=== PATIENT | male | born 1940 | race Caucasian/White ===

== ENCOUNTER 2025-06-12 15:15 | Inpatient (IN) | payer MEDICARE, SELFPAY ==
[2025-06-12] VITALS (17 sets, daily range): BP systolic 102–139; BP diastolic 50–86; PULSE 58–91; RESP 4–19; TEMP 36.8–37.2; O2SAT 89–98; BMI 26.2; BMI 25.1
--- NOTE | 2025-06-12 15:09 | W.ED.GENADLT ---
HPI - General Adult General: Chief complaint: Chest Pain Stated complaint: stemi History of Present Illness: 84-year-old male presents emergency room as a ER to ER transfer for STEMI from [facility]. Patient began having chest pain yesterday patient arrives by air ambulance he is stable at the time he arrives. He has some ST elevation that is 3 and aVF on arrival they are on their EKGs it actually looks like it has improved some. They had given the patient Plavix aspirin and started him on heparin with a 4000 unit bolus and then a drip. Prior to transferring they have discussed with Dr. Mitchell. On arrival here patient denies any chest pain initial EKG shows. Persistent slight ST elevation in 3 and aVF with some development of Q waves. Patient is diabetic does not smoke no known history of coronary artery disease. Associated symptoms: Reports chest pain; Deny dyspnea or rash Related Data Home Medications ?Medication ?Instructions ?Recorded ?Confirmed aspirin 81 mg tablet 81 mg PO DAILY 04/30/25 06/12/25 clopidogrel 75 mg tablet (Plavix) 75 mg PO DAILY 04/30/25 06/12/25 glipizide 10 mg tablet 20 mg PO BID 04/30/25 06/12/25 insulin glargine 100 unit/mL 40 unit SUBCUT QAM 04/30/25 06/12/25 subcutaneous cartridge latanoprost 0.005 % eye drops 1 drp ophthalmic (eye) DAILY 04/30/25 06/12/25 lovastatin 10 mg tablet 10 mg PO DAILY 04/30/25 06/12/25 albuterol sulfate 90 mcg/actuation 2 puff inhalation QID PRN 06/12/25 06/12/25 aerosol inhaler Shortness Of Breath apple cider vinegar 300 mg tablet 300 mg PO DAILY 06/12/25 06/12/25 atorvastatin 80 mg tablet 40 mg PO QPM 06/12/25 06/12/25 cholecalciferol (vitamin D3) 50 50 mcg PO DAILY 06/12/25 06/12/25 mcg (2,000 unit) tablet diclofenac sodium 1 % topical gel 4 g topical QID 06/12/25 06/12/25 dorzolamide 22.3 mg-timolol 6.8 1 drp ophthalmic (eye) BID 06/12/25 06/12/25 mg/mL eye drops empagliflozin 25 mg tablet 25 mg PO DAILY 06/12/25 06/12/25 (Jardiance) fluticasone 100 mcg-salmeterol 50 1 inh inhalation BID 06/12/25 06/12/25 mcg/dose blistr powdr for inhalation gabapentin 100 mg capsule 200 mg PO TID 06/12/25 06/12/25 lidocaine 5 % topical patch 3 patch topical DAILY 06/12/25 06/12/25 metformin 500 mg tablet,extended 1,000 mg PO BID 06/12/25 06/12/25 release 24 hr multivitamin with minerals 1 cap PO DAILY 06/12/25 06/12/25 no.7-folic acid 1 mg capsule omega 3-prh-bvn-fish oil 1,000 mg 1 cap PO TID 06/12/25 06/12/25 (120 mg-180 mg) capsule (Fish Oil) propranolol 20 mg tablet 20 mg PO BID 06/12/25 06/12/25 tamsulosin 0.4 mg capsule 0.4 mg PO QPM 06/12/25 06/12/25 Allergies Allergy/AdvReac Type Severity Reaction Status Date / Time latex Allergy Unknown irritation Verified 04/30/25 15:34 Sulfa (Sulfonamide Allergy Unknown ALGY-Hives Verified 04/30/25 15:34 Antibiotics) iodine Allergy ALGY-Hives Verified 04/30/25 15:34 Review of Systems Const: Denies: fever(s) or chills Card: Reports: chest pain Resp: Denies: dyspnea GI: Denies: abdominal pain : Denies: dysuria, urinary frequency or urinary urgency Musc: Denies: neck pain or back pain Skin/Breast: Denies: rash PFS ED PFSH: Social History Smoking and tobacco/nicotine status: former use of tobacco/nicotine Physical Exam Const: GENERAL APPEARANCE: cooperative ORIENTATION/CONSCIOUSNESS: Yes awake, Yes oriented to person, Yes oriented to place and Yes oriented to time HENMT: COMMON NORMALS: normocephalic, atraumatic and hearing grossly normal bilaterally HEAD & SCALP: normocephalic and atraumatic Resp: COMMON NORMALS: normal respiratory effort, No retractions, No use of accessory muscles and clear to auscultation bilaterally AUSCULTATION: clear to auscultation bilaterally Cardio: COMMON NORMALS: regular rate, regular rhythm and No murmurs present (Cardio) RATE: regular rate RHYTHM: regular rhythm Extremity: COMMON NORMALS: normal to inspection, capillary refill normal, no clubbing, cyanosis or edema, no calf tenderness and no pedal edema Neuro: SENSORIUM/ORIENTATION: Yes oriented to person, Yes oriented to place and Yes oriented to time Skin: COMMON NORMALS: no rashes or lesions noted GENERAL SKIN EXAM: no rashes or lesions noted Course Vital Signs: Vital signs: Vital Signs Temperature 98.9 F 06/12/25 15:15 Pulse Rate 91 06/12/25 15:15 Respiratory Rate 16 06/12/25 15:15 Blood Pressure 123/86 06/12/25 15:15 Pulse Oximetry 95 06/12/25 15:15 Oxygen Delivery Me thod Room Air 06/12/25 15:15 MDM - General Adult Medical Decision Making Dr. Mitchell seen the patient on arrival he reviewed a repeat EKG and recommended going directly to [facility]. He has already received appropriate medication including Plavix aspirin heparin. Patient was prepped for [facility] and transferred directly. Medical Records I reviewed the patient's medical records. Lab Data I reviewed the patient's lab results. No radiology studies performed this visit EKG Data EKG 1: Interpretation: EKG 06/12/2025 1519 sinus rhythm rate of [address] elevation in 3 and aVF with Q waves present. There is some reciprocal ST depression in V45 and 6. Very slight depression in V3. EKGs from [facility] reviewed are scanned into the chart there was ST elevation in those as well. Discharge Plan Discharge Patient Disposition: Admitted As Inpatient Clinical Impression: ST elevation myocardial infarction (STEMI) Condition: Stable Coding Level of Care Code ED [employer] Handler for Bucky Freeman
--- NOTE | 2025-06-12 15:19 | ECG_ITS ---
[employer] Test Date: 2025-06-12 Pat Name: Tomas Anaya Department: Room: Gender: Male Mdm Sr: : 1940 Requested By: Alexey Licona Order Number: [id number] Reading MD: PATRICIA STEVEN Measurements Intervals [place] Rate: 84 P: 64 MN: 184 QRS: -4 QRSD: 122 T: -44 QT: 373 QTc: 443 Interpretive Statements SINUS RHYTHM INFERIOR MYOCARDIAL INFARCTION , PROBABLY RECENT [40+ ms Q WAVE AND/OR ST/T ABNORMALITY IN II/aVF] ACUTE MT No previous ECG available for comparison Electronically Signed On 06-12-2025 20:08:53 CDT by PATRICIA STEVEN [id number] [id number]
--- NOTE | 2025-06-12 15:21 | XACV_ITS ---
Exam Room: 2 Ht: 175 cm Wt: 77 kg BSA: 1.95 m2 Gender: Male : 1940 Any Known Allergies: Latex Exam Priority: Routine Procedure(s): Procedure Description: Diagnostic procedure Procedure Description: Left Heart Catheterization Procedure Description: Left ventriculography Procedure Description: Peripheral Cath Diagnostic Procedure Procedure Description: Abdominal aortic angiography Procedure Description: Miscellaneous Procedure Description: ACT Procedure Description: Coronary Angiography Amanda KELLY; Diagnostic Cath Status: Emergency Diagnostic Findings * Left Main: severe 90% stenosis, TERRY: 3 flow. * Proximal Left Anterior Descending: significant 80% stenosis, TERRY: 3 flow. * Distal Left Anterior Descending: critical 95% stenosis, TERRY: 3 flow. * Proximal Right Coronary Artery to Distal Right Coronary Artery: total occlusion, TERRY: 0 flow. * Proximal Circumflex: severe 90% stenosis, TERRY: 3 flow. * Proximal Circumflex: severe 90% stenosis, TERRY: 3 flow. * Mid Circumflex: obstructive 70% stenosis, TERRY: 3 flow. * 1st Diagonal: severe 90% stenosis, TERRY: 3 flow. * First Obtuse Marginal Branch Segment: severe 90% stenosis, TERRY: 3 flow. * Coronary angiography shows right dominance. Conclusions There is total occlusion coronary artery disease with four vessel disease. The inferior, mid septum, apical septum, anterolateral velasquez are hypokinetic. The apex in the LICEA view is hypokinetic. All other visualized velasquez normal. Moderate left ventricular systolic dysfunction. Ejection fraction of 30%. Recommendations 1-Return to ICU for close monitoring and routine PCI care 2-Continue IV heparin drip as per ACS protocol 3-Hold Plavix for possible CABG 4-Statin with LDL goal of 70 mg/dl, aspirin 81 mg p.o. daily for life long 5-CT surgery consults for CABG 6-Optimal medical management for [place] 7-Continue heparin and nitro drip. Ventriculography Ejection Fraction: 30.0 % LV EDP: 34 mmHg Pressures Phase:Rest AO : 143 / 64 ( 96 ) @ 4:45:00 PM 165 / 69 ( 114 ) @ 5:04:00 PM 166 / 69 ( 115 ) @ 5:04:00 PM 179 / 72 ( 112 ) @ 5:06:00 PM LV : 181 / -15 / 39 @ 5:02:00 PM 177 / -14 / 34 @ 5:04:00 PM 177 / -15 / 28 @ 5:04:00 PM Valves Phase:DefaultPhase AV : 12.0 @ 4:21:45 PM AV Mean Gradient: 12.0 @ 4:21:45 PM Hemodynamic Data Phase:Rest AO : 143.0 / 64.0 ( 96.0 ) @ 4:45:00 PM 165.0 / 69.0 ( 114.0 ) @ 5:04:00 PM 166.0 / 69.0 ( 115.0 ) @ 5:04:00 PM 179.0 / 72.0 ( 112.0 ) @ 5:06:00 PM Clinical Evaluation EBL: 5mL-10mL Procedural Details Pre-Procedure Time Out. Identified patient by full name and date of as verbalized by the patient/guarantor. Does the consent match the physician's order: N/A Emergent. Accurate & Complete Informed Consent: N/A Emergent. Inpatient/Outpatient History & Physical on Chart: N/A Emergent. If H&P is completed, is and addenduem needed: N/A Emergent; If yes, is the addendum complete: N/A Emergent. Visualize and Verify Site with Patient/Guarantor: N/A. Relevant Radiology Images available: N/A. The risks, benefits, and alternatives of sedation and/or procedure were discussed by physician. The patient agrees to continue. Procedure started. [facility] Clinical Fraility Score: 4: Vulnerable. Barrel Stave Inspector Indications: ACS <= 24 hours. Chest Pain Symptom Assessment: Typical Angina Symptoms. Correct patient, site and procedure confirmed by cath team. Current diagnosis: STEMI. PERRLA. 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 Lungs clear x 5 lobes. IV Site on Arrival: 20 gauge in the right anticubital. IV Site on Arrival: 18 gauge in the left anticubital. IV Fluids: 0.9% NaCl at KVO. 0 mL infused prior to biological lab technician. Pre Procedural Pulses: bilateral radial was 2+. Pre Procedural Pulses: bilateral dorsalis pedis was Doppled. Pre Procedural Pulses: bilateral posterior tibial was Doppled. Oxygen started at 2liters/min via nasal canula. right groin was prepped with chloroprep then draped in the usual sterile fashion. right radial was prepped with chloroprep then draped in the usual sterile fashion. Baseline sample Acquired. HR: 71 BPM. Physician notified. Physician arrived. Admit Source: Emergency department. Physician scrubbed in. Immediate Pre-Procedure Time Out. Correct Patient: Yes; Correct Procedure: Yes; Correct Site: Yes; Correct Patient Position: Yes; Correct Supplies: Yes; Dried Flammable Prep: Yes; Blood Products Available: Yes;. Lidocaine 1% infiltrated to the right radial. An attempt to gain access to the right radial artery was unsuccessful. Manual pressure was held as needed to stop the bleeding. Lidocaine 1% infiltrated to the right groin. Arterial access obtained with micropuncture set. A 5 botswanan JL4 catheter in over wire. ACT drawn. Results 146 seconds. Therapeutic limits - pre-heparin administration 90-150 seconds and monitoring heparin during a vascular procedure >250 seconds. Multiple views taken of left coronary artery. Catheter removed over the standard wire. A 5 botswanan JR4 catheter in over wire. View taken of RCA. Catheter removed over the standard wire. A 5 botswanan Angled Pig catheter in over wire. Pt nausea with emesis. EDP Sample taken: LV 181/-16,39; HR: 98 BPM; SpO2: 93%. Hand injection through pigtail to assess EF. EDP Sample taken: LV 177/-15,34; HR: 97 BPM; SpO2: 94%. Pullback taken: LV 177/-16,28; AO 165/69(114); Mean: 12mmHg, Peak to Peak: 12mmHg, SEP: 26sec/min; HR: 105 BPM; SpO2: 93%. Pigtail catheter reositioned to distal aorta. Abdominal aortogram performed in AP @ 10 mL/sec for a total of 30 mL. Catheter removed over the standard wire. A Angio-Seal VIP ([facility]) was successful obtaining hemostatsis at the Right Femoral artery insertion site LOT # [id number] EXP 01-13-2026. Post Procedure: Pulses reassessed and unchanged. PERRLA. 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 No VTE prophylaxis required. Medication's Wasted: Lidocaine 1% = 10 mL. Medication's Wasted: Heparin = 1000 unit. Medication's Wasted: Other = Fentanyl 75mcg, Versed 1 mg. Total IV fluids: 100 mL. Post-op diagnosis: Multi-vessel CAD including Left main. Complications: None. Estimated blood loss: 5mL-10mL. Responsiveness - Normal response to verbal stimuli; alert and oriented, PERRLA. Airway - Unaffected, no intervention required; spontaneous ventilation. Circulation: W/N/L, pulses unchanged. Nausea/Vomiting: Yes. Procedure completed. Patient transferred by bed to ICU. Vital chart was stopped. Access Site Site: Right Femoral artery Sheath Size: 6 Fr Hemostasis Method: Angio-Seal VIP ([facility]) Hemostasis Success: Successful Procedure Medications Start: 3:35 PM Stop: 3:35 PM Medication: Benadryl Amount: 50 mg Route: I.V. Start: 3:35 PM Stop: 3:35 PM Medication: Solu-Medrol (methylprednisolone) Amount: 125 mg Route: I.V. Start: 3:38 PM Stop: 3:38 PM Medication: Versed Amount: 1 mg Route: I.V. Start: 3:41 PM Stop: 3:41 PM Medication: Fentanyl Amount: 25 mcg Route: I.V. Start: 3:57 PM Stop: 3:57 PM Medication: Zofran (ondansetron) Amount: 8 mg Route: I.V. Start: 4:05 PM Stop: 4:05 PM Medication: Lasix (furosemide) Amount: 40 mg Route: I.V. Start: 4:10 PM Stop: 4:10 PM Medication: Nitrogylcerin Amount: 1 Sprays Route: S.L. Start: 4:16 PM Stop: 4:16 PM Medication: Nitrogylcerin Amount: 5 mcg/min Route: I.VFox de guzman I, the attending physician, have reviewed and verified all procedure medications. Yes, all medications given per verbal order Report Signatures Finalized by Jared Patel MD on 06/12/2025 05:09 PM
--- OUTSIDE RECORDS SUMMARY | 2025-06-12 15:21 | XMS_ITS | Clinical Summary ---
Author Organization [facility] [place] Address [address] [place] [address] Phone Care Team Providers Care Drawer Liner Name Role Phone Moni Emery MD Primary Care Provider [phone]- [phone] Allergies Active Allergy Reactions Criticality Noted Date Comments Iodine Rash Low 03/26/2012 Latex Rash Low 09/17/2017 Sulfa (Sulfonamide Antibiotics) Hives High 03/02 Medications aspirin (ECOTRIN EC) 81 mg Tablet, Delayed Release (E.C.) Take 81 mg by mouth daily. Active amLODIPine (NORVASC) 5 mg tabletIndicatio ns:Hypertension , essential Take 1 Tablet (5 mg) by mouth daily. 90 Tablet 3 5 Active insulin glargine (Lantus Solostar U-100 Insulin) 100 unit/mL pen syringe Inject 50 Units by subcutaneous injection daily with breakfast. 15 mL 11 5 Active SITagliptin phosphate (Januvia) 100 mg TabletIndicatio ns:Type 2 diabetes mellitus without complication, with long-term current use of insulin ([facility]) Take 1 Tablet (100 mg) by mouth daily. 90 Tablet 3 5 Active clopidogreL (Plavix) 75 mg TabletIndicatio ns:History of stroke without residual deficits Take 1 Tablet (75 mg) by mouth daily. 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 04/16/2012 CRP recently elevated Diagnostic US showed inflamed hand joints no damage so far Starting MTX and staying on prednisone 07/23/2013 off all DMARDs since around last visit R3=0 Encounters Date Type Department Care Team Description 04/23/[address] [phone] Moni Emery MD Provider Call 04/17/2025 Results Follow-Up [address] [phone] Moni Emery MD HEMOGLOBIN A1C, CBC WITH DIFFERENTIAL, COMPREHENSIVE METABOLIC PANEL, TSH REFLEXIVE 04/16/2025 2:00 PM CDT Office Visit [address] [phone] Moni Emery MD Unintentional weight loss (Primary Dx); Type 2 diabetes mellitus without complication, with long-term current use of insulin ([facility]); Hypertension, essential; Mixed hyperlipidemia; Screening for deficiency anemia; Screening for thyroid disorder 03/18/2025 External Device Data STL ABSTRACTION Provider, Abstract from Last 3 Months Family History Medical History Relation Name Comments Heart Attack Father Relation Name Status Comments Father Mother Social History Tobacco Use Types Packs/Day Years Used Date Smoking Tobacco: Former Cigarettes 1 6 1 975 - 1980 Smokeless Tobacco: Never Tobacco Cessation:Counseling Given: Not Answered Alcohol Use Standard Drinks/Week Comments Not Currently 1 (1 standard drink = 0.6 oz pur e alcohol) Sex and Gender Information Value Date Recorded Sex Assigned at Not on file Legal Sex Male 2:57 PM GLOVE TAGGER Gender Identity Not on file Sexual Orientation Not on file Last Filed Vital Signs Vital Sign Reading Time Taken Comments Blood Pressure 122/72 04/16/2025 2:06 PM CDT Pulse 86 04/16/2025 2:06 PM CDT Temperature 36.2 C (97.2 F) 04/16/2025 2:06 PM CDT Respiratory Rate 18 04/16/2025 2:06 PM CDT Oxygen Saturation 97% 04/16/2025 2:06 PM CDT Inhaled Oxygen Concentration - - Weight 76.6 kg (168 lb 12.8 oz) 04/16/2025 2:06 PM CDT Height 175.3 cm (5' 9 ) 04/16/2025 2:06 PM CDT Body Mass Index 24.93 04/16/2025 2:06 PM CDT Plan of Treatment Upcoming Encounters Date Type Department Care Team (Late st Contact Info) Description 09/29/2025 2:40 PM GLOVE TAGGER Office Visit [facility] [address] [phone] Moni Emery MD [address] [phone] Health Maintenance Due Date Last Done Comments RSV VACCINE (60+ or ) (1 - 1-dose 75+ series) 11/29/2014 DTAP/TDAP/TD VACCINES (2 - Tdap) 10/01/2017 10/01/19 08 DIABETES ANNUAL RETINAL EXAM 02/20/2023 02/20/2022 [place] Preventative Visit/Annual Wellness Visit 10/01/2024 INFLUENZA VACCINE (#1) 2025 , 10/16/2019, 10/08/2018, Additional history exists COVID-19 Vaccine (3 - 2024-2 6 season) 2025 05/10/2021, 04/13/2021 DIABETES: A1C (Auto Order) 07/17/202504/16, 10/16/2024, 05/10/2021 LDL CHOLESTEROL ANNUAL 10/16/2025 10/16/2024 DIABETES HBA1C Q 6 MONTHS 10/17/20252024, 10/16/2024, 05/10/2021 DIABETES ANNUAL FOOT EXAM 04/16/2026 04/16/2025 DIABETES MICROALBUMIN ANNUAL SCREEN 04/16/2026 04/16/2025 PNEUMOCOCCAL VACCINE 50+ YEARS Completed 12/14/2015 , 01/15/2013 ZOSTER VACCINE Completed 04/10/2019, 05/2019, 03/26/2011, Additional history exists KHE eGFR (Auto Order) Completed 04/16/2025 , 10/16/2024, 05/10/2021, Additional history exists [facility] uACR (Auto Order) Completed 04/16/2025 Procedures Procedure Name Priority Date/Time Associated Diagnosis Comments MICROALBUMIN/CREATINI NE RATIO, RANDOM UR Routine 04/16/2025 2:29 PM CDT Type 2 diabetes mellitus without complication, with long-term current use of insulin ([facility]) TSH REFLEXIVE Routine 04/16/2025 2:27 PM CDT Screening for thyroid disorder COMPREHENSIVE METABOLIC PANEL Routine 04/16/2025 2:27 PM CDT Hypertension, essential CBC WITH DIFFERENTIAL Routine 04/16/2025 2:27 PM CDT Screening for deficiency anemia HEMOGLOBIN A1C Routine 04/16/2025 2:27 PM CDT Type 2 diabetes mellitus without complication, with long-term current use of insulin ([facility]) LIPID PANEL Routine 10/16/2024 3:11 PM GLOVE TAGGER Mixed hyperlipidemia from Last 3 Months or Most Recently Relevant to Health Maintenance Results * MICROALBUMIN/CREATININE RATIO, RANDOM UR (04/16/2025 2:29 PM CDT) CREATININE, URINE 121 20 - 320 mg/dL [facility] ALBUMIN, URINE 1.1 See Note: mg/dL [facility] Comment: Reference Range: Reference Range Not established ALB/CREAT RATIO, URINE 9 <30 mg/g creat [facility] Comment: The ADA defines abnormalities in albumin excretion as follows: Albuminuria Category Result (mg/g creatinine) Normal to Mildly increased <30 Moderately increased 30-299 Severely increased > OR = 300 The ADA recommends that at least two of three specimens collected within a 3-6 month period be abnormal before considering a patient to be within a diagnostic category. Test Performed at: [facility] [address] Vernell Collado MD Urine URINE SPECIMEN OBTAINED BY CLEAN CATCH PROCEDURE / Unknown 04/16/2025 2:29 PM CDT 04/16/2025 2:29 PM CDT Moni Emery MD URINE ORDERABLES Final Res ult Performing Organization Address [facility]/ZIP Co de Phone Number [facility] [phone] [facility] [address] * TSH REFLEXIVE (04/16/2025 2:27 PM CDT) TSH 1.45 0.40 - 4.50 mIU/L [facility] Comment: Test Performed at: [facility] [address] Vernell Collado MD Blood 04/16/2025 2:27 PM CDT 04/16/2025 2:28 PM CDT Moni Emery MD CHEMISTRY ORDERABLES Final Result Performing Organization Address [facility]/ZIP Co de Phone Number [facility] [phone] [facility] [address] [place] [phone] * CBC WITH DIFFERENTIAL (04/16/2025 2:27 PM CDT) WBC 8.9 3.8 - 10.8 Thousand/u L [facility] RBC 5.37 4.20 - 5.80 Million/uL [facility] HEMOGLOBIN 15.9 13.2 - 17.1 g/dL [facility] HEMATOCRIT 49.7 38.5 - 50.0 % [facility] MCV 92.6 80.0 - 100.0 fL [facility] MCH 29.6 27.0 - 33.0 pg [facility] MCHC 32.0 32.0 - 36.0 g/dL [facility] Comment: For adults, a slight decrease in the calculated MCHC value (in the range of 30 to 32 g/dL) is most likely not clinically significant; however, it should be interpreted with caution in correlation with other red cell parameters and the patient's clinical condition. RDW 12.2 11.0 - 15.0 % [facility] PLATELETS 319 140 - 400 Thousand/u L [facility] MPV 9.8 7.5 - 12.5 fL [facility] NEUTROPHIL ABSOLUTE 5,215 1,500 - 7,800 cells/uL [facility] LYMPHOCYTE ABSOLUTE 2,821 850 - 3,900 cells/uL [facility] MONOCYTE ABSOLUTE 605 200 - 950 cells/uL [facility] EOSINOPHIL ABSOLUTE 187 15 - 500 cells/uL [facility] BASOPHILS ABSOLUTE 71 0 - 200 cells/uL [facility] NEUTROPHIL 58.6 % [facility] LYMPHOCYTES 31.7 % [facility] MONOCYTE 6.8 % [facility] EOSINOPHILS 2.1 % [facility] BASOPHILS 0.8 % [facility] Comment: Test Performed at: [facility] [id number] [place] [address] Vernell Collado MD Blood 04/16/2025 2:27 PM CDT 04/16/2025 2:28 PM CDT us Moni Emery MD HEMATOLOGY ORDERABLES Vicky l Result [facility] [phone] [facility] [address] [place] [address] * (ABNORMAL) HEMOGLOBIN A1C (04/16/2025 2:27 PM CDT) Pathologist [facility] HEMOGLOBIN A1C 11.7(H) <5.7 % [facility] Comment: For someone without known diabetes, a hemoglobin A1c value of 6.5% or greater indicates that they may have diabetes and this should be confirmed with a follow-up test. For someone with known diabetes, a value <7% indicates that their diabetes is well controlled and a value greater than or equal to 7% indicates suboptimal control. A1c targets should be individualized based on duration of diabetes, age, comorbid conditions, and other considerations. Currently, no consensus exists regarding use of hemoglobin A1c for diagnosis of diabetes for children. ESTIMATED AVERAGE GLUCOSE (MG/DL) 289 mg/dL [facility] ESTIMATED AVERAGE GLUCOSE (MMOL/L) 16.0 mmol/L [facility] Comment: Test Performed at: [facility] [address] [place] [address] Vernell Collado MD Blood 04/16/2025 2:27 PM CDT 04/16/2025 2:28 PM CDT Moni Emery MD CHEMISTRY ORDERABLES Final Result [facility] [phone] [facility] [address] [place] [address] * (ABNORMAL) COMPREHENSIVE METABOLIC PANEL (04/16/2025 2:27 PM CDT) Pathologist [facility] GLUCOSE 270(H) 65 - 99 mg/dL [facility] Comment: Fasting reference interval For someone without known diabetes, a glucose value >125 mg/dL indicates that they may have diabetes and this should be confirmed with a follow-up test. BUN 9 7 - 25 mg/dL [facility] CREATININE 0.87 0.70 - 1.22 mg/dL [facility] GFR 85 > OR = 60 mL/min/1. 73m2 [facility] BUN/CREAT RATIO SEE NOTE: 6 - 22 (calc) [facility] Comment: Not Reported: BUN and Creatinine are within reference range. SODIUM 137 135 - 146 mmol/L [facility] POTASSIUM 4.3 3.5 - 5.3 mmol/L [facility] CHLORIDE 100 98 - 110 mmol/L [facility] CO2 25 20 - 32 mmol/L [facility] CALCIUM 9.7 8.6 - 10.3 mg/dL [facility] TOTAL PROTEIN 6.9 6.1 - 8.1 g/dL [facility] ALBUMIN 4.2 3.6 - 5.1 g/dL [facility] GLOBULIN 2.7 1.9 - 3.7 g/dL (calc) [facility] ALBUMIN/GLOBULIN RATIO 1.6 1.0 - 2.5 (calc) [facility] BILIRUBIN TOTAL 0.8 0.2 - 1.2 mg/dL [facility] ALKALINE PHOSPHATASE 129 35 - 144 U/L [facility] AST 17 10 - 35 U/L [facility] ALT 13 9 - 46 U/L [facility] Comment: Test Performed at: [facility] [address] Vernell Collado MD Blood 04/16/2025 2:27 PM CDT 04/16/2025 2:28 PM CDT Moni Emery MD CHEMISTRY ORDERABLES Final Result [facility] [phone] [facility] [address] [place] [address] * (ABNORMAL) LIPID PANEL (10/16/2024 3:11 PM GLOVE TAGGER) CHOLESTEROL 239(H) <200 mg/dL [facility] HDL 34(L) > OR = 40 mg/dL [facility] TRIGLYCERIDE 174(H) <150 mg/dL [facility] LDL CALCULATED 173(H) mg/dL (calc) [facility] Comment: Reference range: <100 Desirable range <100 mg/dL for primary prevention; <70 mg/dL for patients with CHD or diabetic patients with > or = 2 CHD risk factors. LDL-C is now calculated using the Ibis calculation, which is a validated novel method providing better accuracy than the Friedewald equation in the estimation of LDL-C. Mark YANCEY et al. LORIE. 2013;310(19): 7571-1083 (http://education.[employer]/faq/YDQ629) CHOL/HDL RATIO 7.0(H) <5.0 (calc) [facility] NON-HDL CHOLESTEROL 205(H) <130 mg/dL (calc) [facility] Comment: For patients with diabetes plus 1 major ASCVD risk factor, treating to a non-HDL-C goal of <100 mg/dL (LDL-C of <70 mg/dL) is considered a therapeutic option. Test Performed at: [facility] [address] [place] [address] Vernell Collado MD Blood 10/16/2024 3:11 PM GLOVE TAGGER 10/16/2024 3:11 PM GLOVE TAGGER Moni Emery MD CHEMISTRY ORDERABLES Final Result [facility] [phone] [facility] [address] [facility] [address] from Last 3 Months or Most Recently Relevant to Health Maintenance Insurance [facility] MEDICARE HMO Care Teams Drawer Liner Relationship Specialty Start Date End Date Moni Emery MD [address] [place] [phone] PCP - General Family Practice 09/17/24
--- OUTSIDE RECORDS SUMMARY | 2025-06-12 15:21 | XMS_ITS | Clinical Summary ---
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 04/16/2012 CRP recently elevated Diagnostic US showed inflamed hand joints no damage so far Starting MTX and staying on prednisone 07/23/2013 off all DMARDs since around last visit R3=0 Social History Tobacco Use Types Packs/Day Years Used Date Smoking Tobacco: Never Assessed PHQ-2 Answer Date Recorded Patient Health Questionnaire-2 Score 0 06/19/2023 Sex and Gender Information Value Date Recorded Sex Assigned at Not on file Legal Sex Male 10:25 AM CDT Gender Identity Not on file Sexual Orientation Not on file Last Filed Vital Signs Vital Sign Reading Time Taken Comments Blood Pressure 149/81 06/19/2023 2:41 PM CDT Pulse 65 06/19/2023 2:41 PM CDT Temperature - - Respiratory Rate - - Oxygen Saturation 94% 06/19/2023 2:41 PM CDT Inhaled Oxygen Concentration - - Weight 89.3 kg (196 lb 12.8 oz) 06/19/2023 2:41 PM CDT Height - - Body Mass Index - - Plan of Treatment Health Maintenance Due Date Last Done Comments Lipid Panel 1940 MMR Vaccines (1 of 1 - Stand chaz series) 11/29/1940 DTaP,Tdap,and Td Vaccines (1 - Tdap) 11/29/1946 Varicella Vaccines (1 of 2 - 13+ 2-dose series) 11/29/1952 Depression Screening 11/29/1957 Social Drivers of Health (SDoH) 11/29/1957 Pneumococcal Vaccine: 50+ Ye ars (1 of 1 - PCV) 11/29/1989 Complete Fall Risk Assessment 11/29/2004 Zoster Vaccines (2 of 3) 05/21/2011 03/26/2011 RSV Vaccines (1 - 1-dose 75+ series) 11/29/2014 COVID-19 Vaccine (1 - 2023-2 5 season) 2025 Influenza Vaccine (#1) 2025 HIB Vaccines Aged Out No longer eligi ble based on patient's age to complete this topic HPV Vaccines Aged Out No longer eligi ble based on patient's age to complete this topic Hepatitis A Vaccines Aged Out No long er eligible based on patient's age to complete this topic Hepatitis B Vaccines Aged Out No long er eligible based on patient's age to complete this topic IPV Vaccines Aged Out No longer eligi ble based on patient's age to complete this topic Meningococcal B Vaccine Aged Out No l onger eligible based on patient's age to complete this topic Meningococcal Vaccine Aged Out No renée matt eligible based on patient's age to complete this topic Pneumococcal Vaccine Aged Out No long er eligible based on patient's age to complete this topic Rotavirus Vaccines Aged Out No longer eligible based on patient's age to complete this topic Care Teams Case Maker Relationship Specialty Start Date End Date Moni Emery MD PCP - General Family Medicine 05/22/23
--- OUTSIDE RECORDS SUMMARY | 2025-06-12 15:21 | XMS_ITS | Encounter Summary ---
Author Organization [facility] Address [address] [place] [address] Care Team Providers Care Freight Sorter Name Role Phone Moni Emery MD Primary Care Provider [phone]- [phone] Reason for Visit * Reason Onset Date Comments Lab Results 04/17/2025 Encounter Details Date Type Department Care Team (Latest Contact Info) Description 04/17/2025 Results Follow-Up [facility] Medicine [place] [address] [phone] Moni Emery MD [address] [phone] HEMOGLOBIN A1C, CBC WITH DIFFERENTIAL, COMPREHENSIVE METABOLIC PANEL, TSH REFLEXIVE Social History Tobacco Use Types Packs/Day Years Used Date Smoking Tobacco: Former Cigarettes 1 6 1 975 - 1980 Smokeless Tobacco: Never Alcohol Use Standard Drinks/Week Comments Not Currently 1 (1 standard drink = 0.6 oz pur e alcohol) Sex and Gender Information Value Date Recorded Sex Assigned at Not on file Legal 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 Voiced understanding. Reports he is not taking everyday, Reports he will start now. Patient would not schedule labs at this time. Danyelle CESPEDES * Telephone Encounter - Danyelle Hurley LPN - 04/17/2025 1:14 PM CDT ----- Message from Dr. Moni Emery sent at 04/17/2025 1:11 PM CDT ----- HgA1c is quite high now at 11.7 Is he consistently using his Lantus and Januvia both daily? Needs to cutback on sugar/carbohydrates (potatoes/pasta/bread/rice/etc). Needs repeat in 3 months ----- Message ----- From: Deuce Cote Incoming [facility] Results Sent: 04/17/2025 5:10 AM CDT To: Moni Emery MD * Result Encounter Note - Moni Emery MD - 04/17/2025 1:11 PM CDT HgA1c is quite high now at 11.7 Is he consistently using his Lantus and Januvia both daily? Needs to cutback on sugar/carbohydrates (potatoes/pasta/bread/rice/etc). Needs repeat in 3 months documented in this encounter Plan of Treatment Upcoming Encounters Date Type Department Care Team (Late st Contact Info) Description 09/29/2025 2:40 PM CURTAIN STRETCHER Office Visit [facility] [address] [phone] Moni Emery MD [address] [phone] documented as of this encounter Visit Diagnoses Not on filedocumented in this encounter Care Teams Freight Sorter Relationship Specialty Start Date End Date Moni Emery MD [address] [place] [phone] PCP - General Family Practice 09/17/24 documented as of this encounter
--- OUTSIDE RECORDS SUMMARY | 2025-06-12 15:21 | XMS_ITS | Encounter Summary ---
Author Organization [facility] Address [address] [place] [address] Care Team Providers Care Tablet Coater Name Role Phone Moni Emery MD Primary Care Provider +1- [phone] Reason for Referral * Orthotics/Prosthetics (Routine) - Closed Specialty Diagnoses / Procedures Referred By Contac t Referred To Contact Podiatry Diagnoses Type 2 diabetes mellitus without complication, with long-term current use of insulin ([facility]) Procedures AR OFFICE/OUTPATIENT ESTABLISHED MOD MDM 30 MIN AR OFFICE/OUTPATIENT NEW MODERATE MDM 45 MINUTES Moni Emery MD [address] [place] [phone] Phone: tel: fax: Praneeth Ley DPM [address] [place] [address] Phone: tel: fax: Referral ID Status Reason Start Date Expiration Date Visits Re quested Visits Authorized [id number] Closed 04/24/2025 04/24/2026 1 1 Reason for Visit * Reason Comments Provider Call Encounter Details Date Type Department Care Team ([facility] st Contact Info) Description 04/23/2025 Telephone [facility] Medicine [place] [address] [phone] Moni Emery MD [address] [place] [phone] Provider Call Social History Tobacco Use Types Packs/Day Years Used Date Smoking Tobacco: Former Cigarettes 1 6 1 975 - 1980 Smokeless Tobacco: Never Alcohol Use Standard Drinks/Week Comments Not Currently 1 (1 standard drink = 0.6 oz pur e alcohol) Sex and Gender Information Value Date Recorded Sex Assigned at Not on file Legal Sex Male 2:57 PM KNITTER HAND Gender Identity Not on file Sexual Orientation Not on file documented as of this encounter Miscellaneous Notes * Telephone Encounter - Leila Boyce - 04/24/2025 12:59 PM CDT Faxed podiatry referral and last ov notes to Dr. Ley office at [phone] per Amanda. * Telephone Encounter - Amanda Collins LPN - 04/24/2025 9:36 AM CDT 04/24/2025 9:36 AM Returned call and spoke with patient. Discussed where he might want to go and if [place] was alright . Patient states that he could go to [place]. Amanda CESPEDES * Telephone Encounter - Amanda Collins LPN - 04/23/2025 12:31 PM CDT 04/23/2025 12:31 PM Returned call. No answer. Left voice mail/message to return our call. If patient/caregiver calls back, contact center please inform caller to expect a return call from the clinic. Amanda CESPEDES * Telephone Encounter - Karla Santamaria - 04/23/2025 12:20 PM CDT Copied from [facility] #[id number]. Topic: [id number] Call >> Apr 23, 2025 12:18 PM Karla Murry wrote: Caller is requesting to speak with Clinical Care Team. [facility] Callback Number: [phone] Is the caller a Physician, Nurse Practitioner or Physician Client Service Executive? No Call Notes: Received referral for the patient but not in network with insurance. Is this addressing an immediate patient care need? No documented in this encounter Plan of Treatment Upcoming Encounters Date Type Department Care Team (Late st Contact Info) Description 09/29/2025 2:40 PM KNITTER HAND Office Visit [address] [phone] Moni Emery MD [address] [place] [phone] Scheduled Referrals Name Type Priority Associated Diagnoses Orde r Schedule AMB REFERRAL TO PODIATRY Outpatient Referral Routine Type 2 diabetes mellitus without complication, with long-term current use of insulin (CMS/HCC) Ordered: 04/24/2025 documented as of this encounter Visit Diagnoses Diagnosis Type 2 diabetes mellitus without complication, with long-term current use of insulin (CMS/HCC)- Primary documented in this encounter Care Teams Tablet Coater Relationship Specialty Start Date End Date Moni Emery MD [address] [phone] PCP - General Family Practice 09/17/24 documented as of this encounter
--- NOTE | 2025-06-12 16:36 | PM.HP ---
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 He was noted to have dynamic EKG changes with inferolateral ST elevation with chest pain. After nitroglycerin EKGs improved, STEMI pager was alerted and patient was transferred to us by air ambulance. He was taken immediately to the Substation Operator [employer], he was noted to have multivessel coronary artery disease including distal left main proximal and distal high-grade LAD lesion, chronically occluded RCA and ostial high-grade left circumflex artery. Given the nature of the disease and bifurcating left main high-grade stenosis patient will be best served with coronary artery bypass surgery since he remains stable and chest pain-free. Whether he is a good candidate for coronary artery bypass surgery will be determined after consultation with CT surgeon. Patient was later transferred to ICU on heparin and nitroglycerin drip. Review of Systems Const: Denies: fever(s) or chills Card: Reports: chest pain Resp: Denies: dyspnea GI: Denies: abdominal pain : Denies: dysuria, urinary frequency or urinary urgency Musc: Denies: neck pain or back pain Skin/Breast: Denies: rash Medications/Allergies Home Medications ?Medication ?Instructions ?Recorded ?Confirmed ?Last Taken ?Type aspirin 81 mg tablet 81 mg PO DAILY 04/30/25 06/12/25 Unknown History clopidogrel 75 mg tablet (Plavix) 75 mg PO DAILY 04/30/25 06/12/25 Unknown History glipizide 10 mg tablet 20 mg PO BID 04/30/25 06/12/25 Unknown History insulin glargine 100 unit/mL 40 unit SUBCUT QAM 04/30/25 06/12/25 Unknown History subcutaneous cartridge latanoprost 0.005 % eye drops 1 drp ophthalmic (eye) DAILY 04/30/25 06/12/25 Unknown History lovastatin 10 mg tablet 10 mg PO DAILY 04/30/25 06/12/25 Unknown History albuterol sulfate 90 mcg/actuation 2 puff inhalation QID PRN 06/12/25 06/12/25 Unknown History aerosol inhaler Shortness Of Breath apple cider vinegar 300 mg tablet 300 mg PO DAILY 06/12/25 06/12/25 Unknown History atorvastatin 80 mg tablet 40 mg PO QPM 06/12/25 06/12/25 Unknown History cholecalciferol (vitamin D3) 50 50 mcg PO DAILY 06/12/25 06/12/25 Unknown History mcg (2,000 unit) tablet diclofenac sodium 1 % topical gel 4 g topical QID 06/12/25 06/12/25 Unknown History dorzolamide 22.3 mg-timolol 6.8 1 drp ophthalmic (eye) BID 06/12/25 06/12/25 Unknown History mg/mL eye drops empagliflozin 25 mg tablet 25 mg PO DAILY 06/12/25 06/12/25 Unknown History (Jardiance) fluticasone 100 mcg-salmeterol 50 1 inh inhalation BID 06/12/25 06/12/25 Unknown History mcg/dose blistr powdr for inhalation gabapentin 100 mg capsule 200 mg PO TID 06/12/25 06/12/25 Unknown History lidocaine 5 % topical patch 3 patch topical DAILY 06/12/25 06/12/25 Unknown History metformin 500 mg tablet,extended 1,000 mg PO BID 06/12/25 06/12/25 Unknown History release 24 hr multivitamin with minerals 1 cap PO DAILY 06/12/25 06/12/25 Unknown History no.7-folic acid 1 mg capsule omega 6-uwf-fef-fish oil 1,000 mg 1 cap PO TID 06/12/25 06/12/25 Unknown History (120 mg-180 mg) capsule (Fish Oil) propranolol 20 mg tablet 20 mg PO BID 06/12/25 06/12/25 Unknown History tamsulosin 0.4 mg capsule 0.4 mg PO QPM 06/12/25 06/12/25 Unknown History Allergies Allergy/AdvReac Type Severity Reaction Status Date / Time latex Allergy Unknown irritation Verified 04/30/25 15:34 Sulfa (Sulfonamide Allergy Unknown ALGY-Hives Verified 04/30/25 15:34 Antibiotics) iodine Allergy ALGY-Hives Verified 04/30/25 15:34 PFSH Acute PFSH: Medical History (Updated 06/12/25 @ 19:44 by Jared Patel MD) Hypertension Hyperlipidemia Prostate cancer Social History (Updated 06/12/25 @ 18:28 by Daniel Haji MD) Smoking and tobacco/nicotine status: light tobacco/nicotine user pipe Pipes smoked per week: 7 Years smoked pipe: 5 Pipe Details: Quit 35 years ago Quit status (tobacco/nicotine): has quit using Alcohol intake: never Substance/Drug Use: never Additional social history: Retired real [employer] and [email or web address]. He wants full code as discussed 06/12/2025 with Daniel Haji MD Vitals/I&O/Wt Last Vital Signs Temp 98.9 F 06/12/25 15:15 Pulse 91 06/12/25 15:15 Resp 16 06/12/25 15:15 BP 123/86 06/12/25 15:15 Pulse Ox 95 06/12/25 15:15 O2 Del Method Room Air 06/12/25 15:15 Weight last 48 hrs Weight 178 lb Physical Exam Const: OTHER: GENERAL: Patient is alert, awake and oriented x3. HEART: Regular S1 and S2. No murmur, rub or gallop. LUNGS: Clear to auscultate bilaterally. CENTRAL NERVOUS SYSTEM: Grossly nonfocal. EXTREMITIES: Lower extremities with out edema bilaterally. Data 06/12/25 15:52 06/12/25 15:52 A&P Assessment and plan 1. ST elevation myocardial infarction (STEMI): 2. Hypertension: 3. Prostate cancer: 4. Lung calcification: 5. Hyperlipidemia: 6. LV dysfunction: Plan: Patient is admitted to the ICU Continue IV heparin and IV nitroglycerin Continue aspirin statin add beta-sanjeev Discontinue Plavix as he has been loaded with 600 mg of Plavix in the emergency room for possible CT surgery Echocardiogram assess LV function By LV gram patient left ventricular function was around 40% and no aortic valve gradient was noted I have discussion with the patient and his son who is going to come tomorrow for meeting, patient at this point is not sure regarding CT surgery versus PCI or medical management. He is full code. He would like to discuss it again when his mind is more clear tomorrow. Patient has been given IV Lasix for LV dysfunction in the Substation Operator [employer]. Will continue to monitor Lung nodule noted may need further assessment through CT scan to rule out any malignant metastasis Consult has been placed for medicine colleagues to help us in sorting out underlying medical problems. Further plan be advised as per progress of the patient PDMP PDMP Reviewed: Not Reviewed Attestations Medical Necessity Statement*: Patient require continuation hospitalization for above defined care. Coding Level of Care Code Acute Code for Chg Fwd Diagnoses ST elevation myocardial infarction (STEMI) I21.3 Hypertension I10 Prostate cancer C61 Lung calcification J98.4 Hyperlipidemia E78.5 LV dysfunction I51.9
--- NOTE | 2025-06-12 17:10 | ECG_ITS ---
[employer] Test Date: 2025-06-12 Pat Name: Tomas Anaya Department: Room: ICU09 Gender: Male Youth Care Specialist: : 1940 Requested By: Alexey Licona Order Number: [id number] Reading MD: PATRICIA STEVEN Measurements Intervals Rousseau Rate: 78 P: 64 CT: 210 QRS: -15 QRSD: 116 T: -55 QT: 392 QTc: 448 Interpretive Statements SINUS RHYTHM WITH FIRST DEGREE AV BLOCK INFERIOR MYOCARDIAL INFARCTION , PROBABLY RECENT [40+ ms Q WAVE AND/OR ST/T ABNORMALITY IN II/aVF] ACUTE [place] Compared to ECG 06/12/2025 15:19:13 First degree AV block now present Myocardial infarct finding still present Electronically Signed On 06-12-2025 20:14:58 CDT by PATRICIA STEVEN [email or web address]
--- NOTE | 2025-06-12 17:17 | PC.NURSE ---
I received a call from Lab stating that they had patient's pre-cath blood in the lab, however had not received an order. I obtained verbal orders from Dr. Pacheco for all pre-cath labs and EKG as well as f/u Troponin and EKGs. Timed to match protocol of baseline, 2 hours, and 6 hours. Verbal order read by per policy. Nothing further to add at this time. [facility] contacted Lab after orders were placed to inform them that orders were entered.
[2025-06-12 17:25] LABS: Hematocrit 38.9 % (37-53); Hemoglobin 12.80 g/dL (11.27-16.99); Mean Corpuscular HGB Conc 32.9 g/dL (30-55); Mean Corpuscular Hemoglobin 28.4 pg (27-33); Mean Corpuscular Volume 86.4 fl (82-101); Nucleated Red Blood Cells % 0 %; Platelet Count 330 10^3/cmm (157-399); Red Blood Count 4.50 10^6/uL (3.85-5.65); White Blood Count 11.71 10^3/uL (3.29-11.43)
[2025-06-12] MEDS: nitroglycerin drip 50 MG/250 ML PREMIX IV (17:26)
--- NOTE | 2025-06-12 17:28 | PC.NURSE ---
Dr. Patel at bedside to round on patient and provided verbal order to initiate Heparin weight-based protocol. Order read back and placed per STEMI protocol. I spoke with Alesha Bowman RN, patient's primary nursing and informed her of the addition of medication. She verbalizes understanding.
[2025-06-12 17:32] LABS: INR 1.13 (0.8-1.2); Prothrombin Time 15.30 SECONDS (12.1-14.9)
[2025-06-12 17:41] LABS: Partial Thromboplastin Time 88.2 SECONDS (23.9-36.7)
[2025-06-12 17:44] LABS: Troponin(5th) Baseline 168 ng/L (0-15)
--- NOTE | 2025-06-12 18:09 | PM.CONSULT ---
Providers/Reason For Consult Consulting Physician/Specialty*: Daniel Haji MD Hospitalist Reason for Consult*: Diabetes, abnormal chest x-ray and history of prostate cancer Requesting Physician: Jared Patel Attending Physician: Jared Patel MD Primary Care Provider: Moni Emery MD History of Present Illness History of Present Illness Tomas Anaya is a 84 year old male recently moved from [facility] to [place]. Patient has no history of coronary artery disease or stroke. He does have hyperlipidemia for 5 years diabetes for 5 years with a hemoglobin A1c of 11.3 and does not check his blood sugars. He also states he does not follow a particular diet but does try to avoid sweets. Patient states he does not check his blood sugars because he misplaced his meter. He got 1 about a year ago used 6 times then stopped. His last eye screen was 05/31/2025 for his 's 79th birthday. Patient denies tobacco use but did smoke cigar 5 years only stopping 35 years ago. He does not drink alcohol or use drugs he retired from [employer] as his career. Patient presented to [facility] in [facility] with epigastric abdominal pain radiating to both arms and left neck beginning 20 minutes prior to arrival he had been having nightly pain for about a week Patient has had chest pain for 4 days mostly in the evening he went to hospital in [facility] where EKG showed inferior STEMI with 2 box elevation in lead three 1 box in lead II and 1-1/2 in lead aVF. EKG here similar. He underwent angiogram which showed multivessel disease. This was performed via right femoral artery Diagnostic Findings * Left Main: severe 90% stenosis, TERRY: 3 flow. * Proximal Left Anterior Descending: significant 80% stenosis, TERRY: 3 flow. * Distal Left Anterior Descending: critical 95% stenosis, TERRY: 3 flow. * Proximal Right Coronary Artery to Distal Right Coronary Artery: total occlusion, TERRY: 0 flow. * Proximal Circumflex: severe 90% stenosis, TERRY: 3 flow. * Proximal Circumflex: severe 90% stenosis, TERRY: 3 flow. * Mid Circumflex: obstructive 70% stenosis, TERRY: 3 flow. * 1st Diagonal: severe 90% stenosis, TERRY: 3 flow. * First Obtuse Marginal Branch Segment: severe 90% stenosis, TERRY: 3 flow. * Coronary angiography shows right dominance. Conclusions There is total occlusion coronary artery disease with four vessel disease. The inferior, mid septum, apical septum, anterolateral velasquez are hypokinetic. The apex in the LICEA view is hypokinetic. All other visualized velasquez normal. Moderate left ventricular systolic dysfunction. Ejection fraction of 30%. Recommendations 1-Return to ICU for close monitoring and routine PCI care 2-Continue IV heparin drip as per ACS protocol 3-Hold Plavix for possible CABG 4-Statin with LDL goal of 70 mg/dl, aspirin 81 mg p.o. daily for life long 5-CT surgery consults for CABG 6-Optimal medical management for OK 7-Continue heparin and nitro drip. Dr. Patel noted some masses seen on the cath fluoroscopy and patient states he had chest x-ray done which I reviewed the report from [facility] mediastinal and left hilar calcified lymph nodes are seen. Aortic calcified plaque is noted. There were no reports of consolidation pleural effusion or pneumothorax The patient has a history of prostate cancer and had prostatectomy Review of Systems Narrative: General No fevers chills weight gain weight loss Cardiovascular no chest pain on exertion prior to this week Respiratory no shortness of breath cough wheezing GI no nausea vomiting diarrhea constipation melena hematochezia no dysuria hematuria Neuro no history of seizures or strokes malignancy positive for skin cancers and prostate cancer Medications/Allergies Home Medications ?Medication ?Instructions ?Recorded ?Confirmed ?Last Taken ?Type aspirin 81 mg tablet 81 mg PO DAILY 04/30/25 06/12/25 Unknown History clopidogrel 75 mg tablet (Plavix) 75 mg PO DAILY 04/30/25 06/12/25 Unknown History glipizide 10 mg tablet 20 mg PO BID 04/30/25 06/12/25 Unknown History insulin glargine 100 unit/mL 40 unit SUBCUT QAM 04/30/25 06/12/25 Unknown History subcutaneous cartridge latanoprost 0.005 % eye drops 1 drp ophthalmic (eye) DAILY 04/30/25 06/12/25 Unknown History lovastatin 10 mg tablet 10 mg PO DAILY 04/30/25 06/12/25 Unknown History albuterol sulfate 90 mcg/actuation 2 puff inhalation QID PRN 06/12/25 06/12/25 Unknown History aerosol inhaler Shortness Of Breath apple cider vinegar 300 mg tablet 300 mg PO DAILY 06/12/25 06/12/25 Unknown History atorvastatin 80 mg tablet 40 mg PO QPM 06/12/25 06/12/25 Unknown History cholecalciferol (vitamin D3) 50 50 mcg PO DAILY 06/12/25 06/12/25 Unknown History mcg (2,000 unit) tablet diclofenac sodium 1 % topical gel 4 g topical QID 06/12/25 06/12/25 Unknown History dorzolamide 22.3 mg-timolol 6.8 1 drp ophthalmic (eye) BID 06/12/25 06/12/25 Unknown History mg/mL eye drops empagliflozin 25 mg tablet 25 mg PO DAILY 06/12/25 06/12/25 Unknown History (Jardiance) fluticasone 100 mcg-salmeterol 50 1 inh inhalation BID 06/12/25 06/12/25 Unknown History mcg/dose blistr powdr for inhalation gabapentin 100 mg capsule 200 mg PO TID 06/12/25 06/12/25 Unknown History lidocaine 5 % topical patch 3 patch topical DAILY 06/12/25 06/12/25 Unknown History metformin 500 mg tablet,extended 1,000 mg PO BID 06/12/25 06/12/25 Unknown History release 24 hr multivitamin with minerals 1 cap PO DAILY 06/12/25 06/12/25 Unknown History no.7-folic acid 1 mg capsule omega 2-wmo-ipa-fish oil 1,000 mg 1 cap PO TID 06/12/25 06/12/25 Unknown History (120 mg-180 mg) capsule (Fish Oil) propranolol 20 mg tablet 20 mg PO BID 06/12/25 06/12/25 Unknown History tamsulosin 0.4 mg capsule 0.4 mg PO QPM 06/12/25 06/12/25 Unknown History Allergies Allergy/AdvReac Type Severity Reaction Status Date / Time latex Allergy Unknown irritation Verified 04/30/25 15:34 Sulfa (Sulfonamide Allergy Unknown ALGY-Hives Verified 04/30/25 15:34 Antibiotics) iodine Allergy ALGY-Hives Verified 04/30/25 15:34 Current Medications Generic Name Dose Route Start Last Admin Trade Name Freq PRN Reason Stop Dose Admin Nitroglycerin/Dextrose 50 mg in 250 mls @ 0 mls/hr 06/12/25 16:30 06/12/25 17:26 Nitroglycerin Drip IV 5 mcg/min .Q0M PRANAY 1.5 mls/hr Protocol Administration Per Protocol PFSH Acute PFSH: Medical History (Updated 06/12/25 @ 18:31 by Daniel Haji MD) Hypertension Hyperlipidemia Prostate cancer Social History (Updated 06/12/25 @ 18:28 by Daniel Haji MD) Smoking and tobacco/nicotine status: light tobacco/nicotine user pipe Pipes smoked per week: 7 Years smoked pipe: 5 Pipe Details: Quit 35 years ago Quit status (tobacco/nicotine): has quit using Alcohol intake: never Substance/Drug Use: never Additional social history: Retired real [email or web address] and [employer]. He wants full code as discussed 06/12/2025 with Daniel Haji MD Vitals/I&O/Wt Last Vital Signs Temp 98.9 F 06/12/25 15:15 Pulse 85 06/12/25 17:16 Resp 17 06/12/25 17:00 BP 126/63 06/12/25 17:00 Pulse Ox 92 06/12/25 17:04 O2 Del Method Room Air 06/12/25 17:04 Weight last 48 hrs Weight 77.111 kg Weight 80.739 kg Physical Exam Narrative: General well-developed well-nourished male in no acute cardiopulmonary stress he is lethargic awakens answer questions but voice progressively diminutive and mildly drowsy. He tells me that he is tired this afternoon and sleeps in the afternoons most afternoons. He states that he has been sleeping fine at home denies that he feels drugged CV regular rate and rhythm Lungs clear to auscultation bilaterally with good air movement Abdomen positive bowel tones soft nontender Calves no tenderness cords pretibial edema Radial pulses 2/4 Dorsal pedal pulses 2+/4 Neck no JVD Data 06/12/25 15:52 06/12/25 15:52 A&P Assessment and plan 1. ST elevation myocardial infarction (STEMI): Patient has multivessel coronary artery disease by selective coronary angiogram done today he has not had intervention. Dr. Patel is speaking with cardiothoracic surgery regarding possibility of three-vessel bypass. Alternatively high risk intervention could be attempted. Patient's health is generally pretty good but he has uncontrolled diabetes, history of hypertension and hyperlipidemia. Troponin 168 at 1552 PTT was 88.2 at 1552 resume heparin no bolus 2. Diabetes mellitus with diabetic neuropathy: Start sliding scale insulin and Lantus. Hold metformin due to recent dye. 2000-calorie ADA diet 3. Lung calcification: Will follow-up renal function in the morning. Will give some IV fluids consider CT scan with contrast to follow-up lung nodules 4. Hyperlipidemia: Continue with atorvastatin 80 mg nightly 5. Hypertension: I am going to start metoprolol 25 mg twice a day in place of the he has amlodipine due to known coronary artery disease PDMP PDMP Reviewed: Not Reviewed Coding Level of Care Code [address] elevation myocardial infarction (STEMI) I21.3 Diabetes mellitus with diabetic neuropathy E11.40 Lung calcification J98.4 Hyperlipidemia E78.5 Hypertension I10 Time Spent (min) 70
[2025-06-12] MEDS: heparin drip 25,000 UNIT/500 ML PREMIX 22 UNIT IV (18:10)
[2025-06-12 18:37] LABS: Alanine Aminotransferase 15 U/L (0-41); Albumin Level 3.8 g/dL (3.5-5.2); Alkaline Phosphatase 140 U/L (40-130); Anion Gap 21.7 (5-19); Aspartate Amino Transferase 20 U/L (0-40); Blood Urea Nitrogen 15 mg/dL (8-23); Calcium 9.2 mg/dL (8.5-10.5); Carbon Dioxide 19 mmol/L (22-29); Chloride 98 mmol/L (98-107); Creatinine Clr Calc Pharmacy 69.9573; Globulin 2.9 g/dL (1.3-4.6); Glucose 257 mg/dL (65-115); Lipase 21 U/L (13-60); NT Pro B Type Natriuretic Pept 1299 pg/mL (0-450); Osmolality Calculated 288 mOsm/kg (285-295); Potassium 4.7 mmol/L (3.5-5.1); Sodium 134 mmol/L (136-145); Total Protein 6.7 g/dL (6.6-8.7)
[2025-06-12 18:54] LABS: Troponin 5 2HR 185.2 ng/L (0-15); Troponin 5 2HR Delta 17.2 ABS# (0-10)
--- NOTE | 2025-06-12 20:52 | ECG_ITS ---
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 Measurements Intervals [place] Rate: 64 P: 66 ME: 200 QRS: 2 QRSD: 121 T: -30 QT: 443 QTc: 460 Interpretive Statements SINUS RHYTHM INFERIOR MYOCARDIAL INFARCTION , OF INDETERMINATE AGE [30 ms Q WAVE IN II/aVF] ANTEROLATERAL ST DEPRESSION, POSSIBLY ISCHEMIA Compared to ECG 06/12/2025 17:21:38 First degree AV block no longer present Myocardial infarct finding still present Electronically Signed On 06-13-2025 20:39:25 CDT by Jus Ware M.D. [email or web address]
[2025-06-12 21:57] LABS: Troponin 5 6HR Delta 9.4 ng/L (0-12)
[2025-06-12 21:59] LABS: Troponin 5 6HR 177.4 ng/L (0-15)
[2025-06-13] VITALS (11 sets, daily range): BP systolic 96–124; BP diastolic 51–83; PULSE 55–69; RESP 14–17; TEMP 37.1; O2SAT 95–99
[2025-06-13 01:37] LABS: Partial Thromboplastin Time 83.2 SECONDS (23.9-36.7)
[2025-06-13 04:25] LABS: Hematocrit 38.6 % (37-53); Hemoglobin 12.80 g/dL (11.27-16.99); Mean Corpuscular HGB Conc 33.2 g/dL (30-55); Mean Corpuscular Hemoglobin 28.6 pg (27-33); Mean Corpuscular Volume 86.2 fl (82-101); Nucleated Red Blood Cells % 0 %; Platelet Count 287 10^3/cmm (157-399); Red Blood Count 4.48 10^6/uL (3.85-5.65); White Blood Count 8.55 10^3/uL (3.29-11.43)
[2025-06-13 04:46] LABS: Anion Gap 19.0 (5-19); Blood Urea Nitrogen 19 mg/dL (8-23); Calcium 9.0 mg/dL (8.5-10.5); Carbon Dioxide 21 mmol/L (22-29); Chloride 97 mmol/L (98-107); Creatinine Clr Calc Pharmacy 55.9659; Glucose 293 mg/dL (65-115); Osmolality Calculated 289 mOsm/kg (285-295); Potassium 4.0 mmol/L (3.5-5.1); Sodium 133 mmol/L (136-145)
[2025-06-13] MEDS: insulin glargine 100 units/1 mL 40 UNIT SUBCUT (06:31)
[2025-06-13] MEDS: dorzolamide/timolol Op Soln 10 mL Btl 1 DROP EYE-BOTH (08:17)
[2025-06-13 09:33] LABS: Partial Thromboplastin Time 97.1 SECONDS (23.9-36.7)
--- NOTE | 2025-06-13 10:57 | XRR_ITS ---
PROCEDURE INFORMATION: Exam: XR Chest Exam date and time: 06/13/2025 1:11 PM Age: 84 years old Clinical indication: Shortness of breath; Additional info: SOB TECHNIQUE: Imaging protocol: Radiologic exam of the chest. Views: 1 view. COMPARISON: DX XR chest 1V portable [id number] 06/12/2025 1:40 PM FINDINGS: Lungs: Unremarkable. No consolidation. Pleural spaces: No pneumothorax. Heart/Mediastinum: Unremarkable. No cardiomegaly. Bones/joints: Unremarkable. XR/XR chest 1V portable [id number] IMPRESSION: No acute findings.
--- NOTE | 2025-06-13 12:37 | USCV_ITS ---
CarloTomas sorensen Age: 84 Gender: M : 1940 Exam Date: 06/13/2025 14:00 Ordering Phys: Jared Patel MD ([email or web address]) Technologist: Lazaro Dotson Exam Location: [facility] [place] Indication: POST OK BP: 106 / 52 HR: 58 Rhythm: Sinus Technical Quality: Adequate MEASUREMENTS (Male / Female) Normal Values 2D ECHO LV Diastolic Diameter PLAX 5.0 cm 4.2 - 5.9 / 3.9 - 5.3 cm IVS Diastolic Thickness 1.1 cm 0.6 - 1.0 / 0.6 - 0.9 cm IVS Systolic Thickness 1.2 cm LVPW Diastolic Thickness 0.9 cm 0.6 - 1.0 / 0.6 - 0.9 cm LVPW Systolic Thickness 1.8 cm LVOT Diameter 2.0 cm LV Ejection Fraction 2D Teich 55.5 % LV Ejection Fraction MOD 4C 66.1 % LV Ejection Fraction MOD 2C 53.5 % LV Ejection Fraction 2C AL 55.2 % LA Diameter 3.0 cm RA Systolic Volume 4C AL 72.2 ml RA Systolic Volume 4C MOD 68.6 ml LA Sys Volume AL 50.3 cm cubed LA Sys Volume Index AL 26.5 cm cubed/m squared Aorta at Sinotubular Diameter 2.0 cm IVC Diameter 1.8 cm M-MODE LA Ao Ratio MM 1.3 AV Cusp Separation MM 1.8 cm DOPPLER AV Peak Velocity 121.0 cm/s LVOT Peak Velocity 103.0 cm/s AV Area Cont Eq vti 3.1 cm squared AV Area Cont Eq pk 2.8 cm squared MV Peak Velocity 110.0 cm/s MV Area PHT 3.8 cm squared Mitral E to A Ratio 0.7 TV Peak Velocity 322.8 cm/s TR Peak Velocity 392.0 cm/s TR Peak Gradient 61.5 mmHg TR Mean Velocity 351.0 cm/s TR Mean Gradient 50.3 mmHg TR Velocity Time Integral 118.2 cm PV Peak Velocity 84.7 cm/s RV Ejection Time 0.3 s FINDINGS Left Ventricle Normal left ventricular cavity size. Normal left ventricular wall thickness. Mildly decreased left ventricular systolic function. Left ventricular ejection fraction is estimated at 50 %. There appeared to be inferior wall and basal to mid anterior wall hypokinesis. Right Ventricle The right ventricle is normal in size and function. Right Atrium The right atrium is normal in size. Left Atrium The left atrium is normal in size. Mitral Valve Structurally normal mitral valve without significant stenosis or prolapse. There is mild mitral regurgitation. Aortic Valve Structurally normal aortic valve with mild sclerosis or stenosis. There is n trace aortic regurgitation. Tricuspid Valve Mild tricuspid valve regurgitation. Pulmonic Valve Structurally normal pulmonic valve without significant stenosis. There is no pulmonic regurgitation. Pericardium Normal pericardium without effusion. Aorta Normal ascending aorta dimension. IVC The inferior vena cava appears normal. CONCLUSIONS Normal left ventricular cavity size. Normal left ventricular wall thickness. Mildly decreased left ventricular systolic function. Left ventricular ejection fraction is estimated at 50 %. There appeared to be inferior wall and basal to mid anterior wall hypokinesis. Structurally normal mitral valve without significant stenosis or prolapse. There is mild mitral regurgitation. Structurally normal aortic valve with mild sclerosis or stenosis. There is n trace aortic regurgitation. There is no pericardial effusion. Right atrial pressure is around 10 mm of mercury. Jared Patel MD (Electronically Signed) Final Date: 13 June 2025 18:07 S
--- NOTE | 2025-06-13 13:07 | P.PN_ITS ---
Subjective 2 Subjective: No overnight event troponin bumped to 180s and dropped down to 177 Vitals remained stable Patient is off nitro drip but continues to have heparin drip Vitals/I&O/Wt Last Vital Signs Temp 98.6 F 06/12/25 22:00 Pulse 62 06/13/25 09:03 Resp 16 06/13/25 08:59 BP 97/52 06/13/25 03:00 Pulse Ox 96 06/13/25 09:03 O2 Del Method Room Air 06/13/25 09:03 O2 Flow Rate 2 06/13/25 08:59 06/12/25 06/13/25 06/13/25 22:59 06:59 14:59 Intake Total 100 / 100 299.467 / 399.467 327.333 / 327.333 Output Total 515 / 515 1000 / 1515 Balance -415 / -415 -700.533 / -1115.533 327.333 / 327.333 Weight last 48 hrs Weight 162 lb Weight 170 lb Weight 178 lb Physical Exam 2 Const: OTHER: GENERAL: Patient is alert, awake and oriented x3. HEART: Regular S1 and S2. No murmur, rub or gallop. LUNGS: Clear to auscultate bilaterally. CENTRAL NERVOUS SYSTEM: Grossly nonfocal. EXTREMITIES: Lower extremities with out edema bilaterally. Data 06/13/25 04:08 06/13/25 04:08 A&P Assessment and plan 1. ST elevation myocardial infarction (STEMI): Most likely completed infarct as patient has chest pain for 5 days ago, he is chest pain-free now appeared to be highly calcified acute on chronic RCA which may be the culprit but since he has completed infarct and multivessel disease he will be better served with consideration for CABG 2. Hypertension: Blood pressure is well-controlled on nitro drip he has dropped some but blood pressure, it was discontinued now and patient is on metoprolol aspirin and statin 3. Prostate cancer: History of prostate cancer in 2001. Denies any metastatic disease, will obtain records 4. Lung calcification: Patient denies any lung disease it is an incidental finding may further consider CT scan of the chest 5. Hyperlipidemia: Will continue statin 6. LV dysfunction: 30 to 40% by hand-injection because patient has a high LVEDP at that time therefore power injection was avoided during the cath, echocardiogram will be obtained to assess actual ejection fraction patient does not appear to be in decompensated heart failure, he is clear in the lungs and mentating good and oxygen level is 96% at room air. 7. Carotid artery disease: Patient has history of CVA in 2022 however he drives work around his home independently he is mentally sharp. According to him he was told that one of his side most likely right side was 100% blocked while other side was moderately blocked and no intervention was done at that time. We will obtain medical records from 2022 vascular ultrasound from [facility]. Plan: I have detailed discussion with the patient his son by bedside I have presented him with 3 options best case scenario given his multivessel coronary artery disease distal left main involving ostial LAD circumflex proximal mid LAD stenosis diagonal stenosis and obtuse marginal stenosis with cute and chronic RCA and moderate LV dysfunction definitely CABG is the best option if he is a reasonable candidate though he will be risky given his underlying comorbidities including history of CVA carotid artery disease advanced age, second best option is consideration Impella guided high risk PCI with surgical backup and of course he has medical management option. Patient and his son would like to go for coronary artery bypass surgery. Given them the choices they opted for [facility]. I have spoken to Dr. Eric Tran CT surgeon at [facility] who has accepted the transfer. We will initiate the transfer. Currently patient is on heparin drip he is off the nitro because of soft blood pressure and not having any chest pain. Continue aspirin statin Discontinue Plavix, patient only got 600 Plavix yesterday for now no more Plavix Continue IV heparin as per ACS protocol Reduce metoprolol to 12.5 mg p.o. twice daily Echocardiogram will be obtained to assess LV function or any valvular abnormality Obtain carotid Doppler records from [facility] PDMP PDMP Reviewed: Not Reviewed Attestations 2 Medical Necessity Statement*: Patient require continuation of hospitalization for above defined care Coding Level of Care Code Acute Code for Chg Fwd Diagnoses ST elevation myocardial infarction (STEMI) I21.3 Hypertension I10 Prostate cancer C61 Lung calcification J98.4 Hyperlipidemia E78.5 LV dysfunction I51.9 Carotid artery disease I77.9
[2025-06-13 15:20] LABS: Partial Thromboplastin Time 50.8 SECONDS (23.9-36.7)
[2025-06-13] MEDS: heparin 5,000 unit/mL INJ 1 mL IVP (15:33)
--- NOTE | 2025-06-13 16:48 | PC.NURSE ---
Transfer: Room available at [facility] ground, [address] Room 50[address]. [phone].
--- NOTE | 2025-06-13 17:06 | PC.NURSE ---
Report called to [facility] To at [facility].
--- NOTE | 2025-06-13 17:09 | PC.NURSE ---
[facility] contacted, will be one hour.
[2025-06-13] MEDS: heparin drip 25,000 UNIT/500 ML PREMIX 17 UNIT IV (17:45)
--- NOTE | 2025-06-13 17:53 | P.TS_ITS ---
<Statement entered by Jared Patel MD - 06/15/25 20:00> Patient was evaluated and cared for in conjunction with an advanced practice practitioner. I personally examined the patient and reviewed the chart and all pertinent data including imaging, telemetry, and laboratory results. I discussed the patient in detail with the advanced practice practitioner. Please see their note for complete H&P testing result and agreed upon plan of care for the patient. Transfer Summary Providers Date of Admission: 06/12/25 16:34 Date of Discharge/Transfer: 06/15/25 Attending Provider at Admission: Jared Patel MD Attending Provider at Transfer: Jared Patel MD Primary Care Provider: Moni Emery MD Transfer Plans: Anticipated date of transfer: 06/15/25 . Diagnoses at Discharge Discharge Diagnosis 1. ST elevation myocardial infarction (STEMI): 2. Hypertension: 3. Prostate cancer: 4. Lung calcification: 5. Hyperlipidemia: 6. LV dysfunction: 7. Carotid artery disease: Reason for Visit Reason for Visit stemi Hospital Course Hospital Course 84-year-old male past medical history significant for remote history of smoking, diabetes mellitus, CVA, carotid artery disease, history of CA prostate 2001 presented with completed infarct with ST elevation and then for lateral leads with dynamic changes, pain started 3 to 4 days ago. He was loaded with 600 mg of Plavix at an outside hospital along with 324 mg of aspirin. He was finch sferred to [facility] from [facility] [place]. He was taken immediately to the [facility] noted to have multivessel coronary artery disease requiring CABG. Patient Plavix was stopped he was continued on heparin and nitroglycerin. He was chest pain-free overnight. Of next couple of hours. Peak troponin bumped up to 177 and then dropped back to 160. His creatinine is normal. Patient and his son was discussed regarding option of CABG and they would like to proceed with it. I have spoken to CT surgeon Dr.Fotouhi Reyes who has excepted him as a transfer. Patient is being transferred in a stable condition. Will continue 12.5 mg p.o. twice daily of metoprolol, aspirin and statin and heparin drip. He is stable vital moody. Advised ICU staff to send CAD of angiogram, echocardiogram, carotid artery report from outside hospital which has done in 2022. Please feel free to reach Dr. Patel if you have any question. Physical Exam Const: OTHER: GENERAL: Patient is alert, awake and oriented x3. HEART: Regular S1 and S2. No murmur, rub or gallop. LUNGS: Clear to auscultate bilaterally. CENTRAL NERVOUS SYSTEM: Grossly nonfocal. EXTREMITIES: Lower extremities with out edema bilaterally. TS Data Studies Completed and Pending Pending at discharge Category Date Time Status PTT [Partial Thromboplastin Time] Timed Lab 06/13/25 20:30 Ordered Platelet Count Q2D Lab 06/14/25 04:00 Ordered Platelet Count Q2D Lab 06/16/25 04:00 Ordered CV. echo complete* [id number] Routine Ultrasound 06/13/25 12:37 Taken Completed Studies During Hospitalization Category Date Time Status PARAMEDICAL AIDE request for service Stat Exams 06/12/25 15:21 Completed XR chest 1V portable [id number] Routine Exams 06/13/25 10:57 Completed Laboratory Last Values WBC 8.55 10^3/uL (3.29-11.43) 06/13/25 04:08 RBC 4.48 10^6/uL (3.85-5.65) 06/13/25 04:08 Hgb 12.80 g/dL (11.27-16.99) 06/13/25 04:08 Hct 38.6 % (37-53) 06/13/25 04:08 MCV 86.2 fl (82-101) 06/13/25 04:08 MCH 28.6 pg (27-33) 06/13/25 04:08 MCHC 33.2 g/dL (30-55) 06/13/25 04:08 RDW 12.5 % (12.1-15.1) 06/13/25 04:08 Plt Count 287 10^3/cmm (157-399) 06/13/25 04:08 MPV 9.5 fL (7.4-10.4) 06/13/25 04:08 Neut % (Auto) 81.0 % 06/13/25 04:08 Lymph % (Auto) 16.4 % 06/13/25 04:08 [place] % (Auto) 1.9 % 06/13/25 04:08 Eos % (Auto) 0.0 % 06/13/25 04:08 Baso % (Auto) 0.1 % 06/13/25 04:08 Neut # (Auto) 6.93 10^3/uL (1.8-7.7) 06/13/25 04:08 Lymph # (Auto) 1.4 10^3/uL (0.8-4.8) 06/13/25 04:08 [place] # (Auto) 0.2 10^3/uL (0.2-0.9) 06/13/25 04:08 Eos # (Auto) 0.0 10^3/uL (0.0-0.8) 06/13/25 04:08 Baso # (Auto) 0.0 10^3/uL (0.0-0.1) 06/13/25 04:08 Nucleated RBC % (auto) 0 % 06/13/25 04:08 Nucleated RBCs # 0.0 /100WBC 06/13/25 04:08 PT 15.30 SECONDS (12.1-14.9) H 06/12/25 15:52 INR 1.13 (0.8-1.2) 06/12/25 15:52 APTT 50.8 SECONDS (23.9-36.7) H 06/13/25 15:00 D-Dimer 0.69 ug/mLFEU (0-0.59) H 06/12/25 15:52 Sodium 133 mmol/L (136-145) L 06/13/25 04:08 Potassium 4.0 mmol/L (3.5-5.1) 06/13/25 04:08 Chloride 97 mmol/L (98-107) L 06/13/25 04:08 Carbon Dioxide 21 mmol/L (22-29) L 06/13/25 04:08 Anion Gap 19.0 (5-19) 06/13/25 04:08 BUN 19 mg/dL (8-23) 06/13/25 04:08 Creatinine 1.0 mg/dL (0.7-1.2) 06/13/25 04:08 GFR Calculation Not Reportable 06/13/25 04:08 Glucose 293 mg/dL (65-115) H 06/13/25 04:08 POC Glucose 358 mg/dL (70-110) H 06/13/25 11:50 Calculated Osmolality 289 mOsm/kg (285-295) 06/13/25 04:08 Calcium 9.0 mg/dL (8.5-10.5) 06/13/25 04:08 Total Bilirubin 0.5 mg/dL (0.15-1.2) 06/12/25 15:52 AST 20 U/L (0-40) 06/12/25 15:52 ALT 15 U/L (0-41) 06/12/25 15:52 Alkaline Phosphatase 140 U/L (40-130) H 06/12/25 15:52 Creatine Kinase 105 U/L (39-308) 06/12/25 15:52 CK-MB (CK-2) Cancelled 06/12/25 15:52 CK-MB (CK-2) Rel Index Cancelled 06/12/25 15:52 Troponin T Baseline 168 ng/L (0-15) H* 06/12/25 15:52 Troponin T 120 Minute 185.2 ng/L (0-15) H 06/12/25 17:50 Delta Troponin T 17.2 ABS# (0-10) H* 06/12/25 17:50 Troponin T Hi Sens 6Hr 177.4 ng/L (0-15) H 06/12/25 21:34 Troponin T Hi Sens 6Hr Delta 9.4 ng/L (0-12) 06/12/25 21:34 NT-Pro-B Natriuret Pep 1299 pg/mL (0-450) H 06/12/25 15:52 Total Protein 6.7 g/dL (6.6-8.7) 06/12/25 15:52 Albumin 3.8 g/dL (3.5-5.2) 06/12/25 15:52 Globulin 2.9 g/dL (1.3-4.6) 06/12/25 15:52 Lipase 21 U/L (13-60) 06/12/25 15:52 Blood Type O Positive 06/12/25 17:50 Rho(D) Type Rh positive 06/12/25 17:50 Antibody Screen Negative 06/12/25 17:50 Radiology Impressions Chest X-Ray 06/13/25 10:57 IMPRESSION: No acute findings. Recent Clincial Data Last Vital Signs Temp 98.6 F 06/12/25 22:00 Pulse 65 06/13/25 15:33 Resp 16 06/13/25 15:32 BP 97/52 06/13/25 03:00 Pulse Ox 96 06/13/25 15:32 O2 Del Method Room Air 06/13/25 15:32 O2 Flow Rate 2 06/13/25 08:59 Vital Signs Pulse Resp Pulse Ox O2 Del Method O2 Flow Rate 06/13/25 15:33 65 06/13/25 15:32 69 16 96 Room Air 06/13/25 14:34 58 L 06/13/25 09:03 62 96 Room Air 06/13/25 08:59 57 L 16 95 Nasal Cannula 2 06/13/25 06:00 65 Intake & Output/Weight 06/11/25 06/12/25 06/13/25 06/14/25 06:59 06:59 06:59 06:59 Intake Total 399.467 / 399.467 886.475 / 886.475 Output Total 1515 / 1515 600 / 600 Balance -1115.533 / -1115.533 286.475 / 286.475 Weight 162 lb Vitals Last Vital Signs Temp 98.6 F 06/12/25 22:00 Pulse 65 06/13/25 15:33 Resp 16 06/13/25 15:32 BP 97/52 06/13/25 03:00 Pulse Ox 96 06/13/25 15:32 O2 Del Method Room Air 06/13/25 15:32 O2 Flow Rate 2 06/13/25 08:59 TS Medications Medications Acetaminophen (Acetaminophen 325 Mg Tablet) 650 mg PO Q6H PRN PRN Reason: MILD PAIN Al Hydrox/Mg Hydrox/Simethicone (Ntrr-Ydn-Pdqintjry-Fabrizio 30 Ml Udc) 30 ml PO Q15M PRN PRN Reason: INDIGESTION Albuterol Sulfate (Albuterol 2.5 Mg/3 Ml Neb) 2.5 mg INHALATION QID.RESPIRATORY PRANAY Last Admin: 06/13/25 15:31 Dose: 2.5 mg Alprazolam (Alprazolam 0.5 Mg Tablet) 0.25 mg PO TID PRN PRN Reason: ANXIETY Aspirin (Aspirin 81 Mg Ec Tablet) 81 mg PO DAILY PRANAY Last Admin: 06/13/25 08:17 Dose: 81 mg Atorvastatin Calcium (Atorvastatin 40 Mg Tablet) 40 mg PO QPM PRANAY Last Admin: 06/13/25 17:46 Dose: 40 mg Atropine Sulfate (Atropine 1 Mg/Ml Sdv 1 Ml) 0.5 mg IVP PRN PRN PRN Reason: Symptomatic bradycardia Budesonide (Budesonide 0.5 Mg/2 Ml Neb) 0.5 mg INHALATION BID.RESPIRATORY [facility] Last Admin: 06/13/25 08:53 Dose: 0.5 mg Dorzolamide/Timolol (Dorzolamide/Timolol Op Soln 10 Ml Btl) 1 drop EYE-BOTH BID [facility] Last Admin: 06/13/25 08:17 Dose: 1 drop Fentanyl (Fentanyl 50 Mcg/Ml Inj 2ml) 50 mcg IVP PRN PRN PRN Reason: PAIN Gabapentin (Gabapentin 100 Mg Capsule) 200 mg PO TID [facility] Last Admin: 06/13/25 14:54 Dose: 200 mg Glucagon (Glucagon 1 Mg/Ml Kit 1 Ml) 1 mg IM ONCE PRN; Protocol PRN Reason: Adult Acute Hypoglycemia Nursing Prot. Heparin Sodium (Porcine) (Heparin 5,000 Unit/Ml Inj 1 Ml) 0 unit IVP PRN PRN; Protocol PRN Reason: Heparin Weight Based Protocol -Subsequent Bolus Last Admin: 06/13/25 15:33 Dose: 1,600 unit Nitroglycerin/Dextrose (Nitroglycerin Drip) 50 mg in 250 mls @ 0 mls/hr IV .Q0M [facility]; Protocol Last Titration: 06/13/25 15:07 Dose: 0 mcg/min, 0 mls/hr Heparin Sodium/Sodium Chloride (Heparin Drip) 25,000 unit in 500 mls @ 0 mls/hr IV CONT [facility]; Protocol Last Admin: 06/13/25 17:45 Dose: 11.02 unit/kg/hr, 17 mls/hr Dextrose (D5w) 500 mls @ 0 mls/hr IV ONCE PRN; Protocol PRN Reason: Adult Acute Hypoglycemia Prot Dextrose (D10w) 125 mls @ 750 mls/hr IV PRN PRN; Protocol PRN Reason: Adult Acute Hypoglycemia Nursing Protocol Dextrose (D10w) 250 mls @ 1,000 mls/hr IV PRN PRN; Protocol PRN Reason: Adult Acute Hypoglycemia Nursing Protocol Insulin Glargine (Insulin Glargine 100 Units/1 Ml) 40 unit SUBCUT QAM [facility] Last Admin: 06/13/25 06:31 Dose: 40 unit Insulin Human Lispro (Insulin Lispro 100 Unit/1 Ml) 0 unit SUBCUT WM&BEDTIME [facility]; Protocol Last Admin: 06/13/25 17:46 Dose: 12 unit Lanolin (Lanolin Oint 7 Gm) 1 applic TOPICAL PRN PRN PRN Reason: DRYNESS Latanoprost (Latanoprost 0.005% Op Soln 2.5 Ml Btl) 1 drop EYE-BOTH DAILY [facility] Last Admin: 06/13/25 08:17 Dose: 1 drop Magnesium Hydroxide (Magnesium Hydroxide 30 Ml Udc) 30 ml PO DAILY PRN PRN Reason: CONSTIPATION Metoprolol Tartrate (Metoprolol Tartrate 25 Mg Tablet) 25 mg PO BID@0900,2100 [facility] Last Admin: 06/13/25 10:32 Dose: 25 mg Naloxone HCl (Naloxone 0.4 Mg/Ml Sdv) 0.1 mg IVP Q2M PRN PRN Reason: RESPIRATORY RATE < 8/MIN Nitroglycerin (Nitroglycerin 0.4 Mg Sublingual Tablet) 0.4 mg SUBLINGUAL Q5M PRN PRN Reason: CHEST PAIN Tamsulosin HCl (Tamsulosin 0.4 Mg Capsule) 0.4 mg PO QPM [facility] Last Admin: 06/13/25 17:46 Dose: 0.4 mg Temazepam (Temazepam 15 Mg Capsule) 15 mg PO BEDTIME PRN PRN Reason: INSOMNIA Vitamin D (Cholecalciferol (Vitamin D3) 1,000 Unit Tablet) 2,000 unit PO DAILY [facility] Last Admin: 06/13/25 08:16 Dose: 2,000 unit Discontinued Medications Diphenhydramine HCl (Diphenhydramine 50 Mg/Ml Sdv 1ml) Confirm Administered Dose 50 mg .ROUTE .STK-MED ONE Stop: 06/12/25 15:35 Fentanyl (Fentanyl 50 Mcg/Ml Inj 2ml) Confirm Administered Dose 100 mcg .ROUTE .STK-MED ONE Stop: 06/12/25 15:23 Furosemide (Furosemide 10 Mg/Ml Sdv 10ml) Confirm Administered Dose 100 mg .ROUTE .STK-MED ONE Stop: 06/12/25 16:04 Heparin Sodium (Porcine) (Heparin 5,000 Unit/Ml Inj 1 Ml) Confirm Administered Dose 5,000 unit .ROUTE .STK-MED ONE Stop: 06/12/25 15:23 Heparin Sodium (Porcine) (Heparin 5,000 Unit/Ml Inj 1 Ml) 0 unit IVP ONCE ONE; Protocol Stop: 06/12/25 17:29 Last Admin: 06/12/25 18:12 Dose: Not Given Lidocaine HCl (Xylocaine) Confirm Administered Dose 20 mls @ as directed .ROUTE .ST-MED ONE Stop: 06/12/25 15:24 Sodium Chloride (Sodium Chloride 0.9%) Confirm Administered Dose 1,000 mls @ as directed .ROUTE .STK-MED ONE Stop: 06/12/25 15:30 Nitroglycerin/Dextrose (Nitroglycerin Drip) Confirm Administered Dose 50 mg in 250 mls @ as directed .ROUTE .ST-MED ONE Stop: 06/12/25 16:13 Methylprednisolone Sodium Succinate (Methylprednisolone Sod Succ 125 Mg/2 Ml Inj) Confirm Administered Dose 125 mg .ROUTE .ST-MED ONE Stop: 06/12/25 15:37 Midazolam HCl (Midazolam 1 Mg/Ml Inj 2 Ml) Confirm Administered Dose 2 mg .ROUTE .ST-MED ONE Stop: 06/12/25 15:24 Nitroglycerin (Nitroglycerin 5 Mg/Ml Sdv 10 Ml) Confirm Administered Dose 50 mg .ROUTE .ST-MED ONE Stop: 06/12/25 15:23 Nitroglycerin (Nitroglycerin Dixon 4.9 Gm Btl) Confirm Administered Dose 60 spray .ROUTE .[facility]-MED ONE Stop: 06/12/25 16:10 Non-Formulary Medication (Fluticasone Propion-Salmeterol) 1 inh INHALATION BID PRANAY Ondansetron HCl (Ondansetron 2 Mg/Ml Sdv 2 Ml) Confirm Administered Dose 4 mg .ROUTE .ST-MED ONE Stop: 06/12/25 15:54 Ondansetron HCl (Ondansetron 2 Mg/Ml Sdv 2 Ml) Confirm Administered Dose 4 mg .ROUTE .[facility]-MED ONE Stop: 06/12/25 15:58 Allergies latex Allergy (Unknown, Verified 04/30/25 15:34) irritation Sulfa (Sulfonamide Antibiotics) Allergy (Unknown, Verified 04/30/25 15:34) ALGY-Hives iodine Allergy (Verified 04/30/25 15:34) ALGY-Hives Home Medications aspirin 81 mg tablet 81 mg PO DAILY 04/30/25 [History Confirmed 06/12/25] clopidogrel 75 mg tablet (Plavix) 75 mg PO DAILY 04/30/25 [History Confirmed 06/12/25] glipizide 10 mg tablet 20 mg PO BID 04/30/25 [History Confirmed 06/12/25] insulin glargine 100 unit/mL subcutaneous cartridge 40 unit SUBCUT QAM 04/30/25 [History Confirmed 06/12/25] latanoprost 0.005 % eye drops 1 drp ophthalmic (eye) DAILY 04/30/25 [History Confirmed 06/12/25] lovastatin 10 mg tablet 10 mg PO DAILY 04/30/25 [History Confirmed 06/12/25] albuterol sulfate 90 mcg/actuation aerosol inhaler 2 puff inhalation QID PRN Shortness Of Breath 06/12/25 [History Confirmed 06/12/25] apple cider vinegar 300 mg tablet 300 mg PO DAILY 06/12/25 [History Confirmed 06/12/25] atorvastatin 80 mg tablet 40 mg PO QPM 06/12/25 [History Confirmed 06/12/25] cholecalciferol (vitamin D3) 50 mcg (2,000 unit) tablet 50 mcg PO DAILY 06/12/25 [History Confirmed 06/12/25] diclofenac sodium 1 % topical gel 4 g topical QID 06/12/25 [History Confirmed 06/12/25] dorzolamide 22.3 mg-timolol 6.8 mg/mL eye drops 1 drp ophthalmic (eye) BID 06/12/25 [History Confirmed 06/12/25] empagliflozin 25 mg tablet (Jardiance) 25 mg PO DAILY 06/12/25 [History Confirmed 06/12/25] fluticasone 100 mcg-salmeterol 50 mcg/dose blistr powdr for inhalation 1 inh inhalation BID 06/12/25 [History Confirmed 06/12/25] gabapentin 100 mg capsule 200 mg PO TID 06/12/25 [History Confirmed 06/12/25] lidocaine 5 % topical patch 3 patch topical DAILY 06/12/25 [History Confirmed 06/12/25] metformin 500 mg tablet,extended release 24 hr 1,000 mg PO BID 06/12/25 [History Confirmed 06/12/25] multivitamin with minerals no.7-folic acid 1 mg capsule 1 cap PO DAILY 06/12/25 [History Confirmed 06/12/25] omega 3-mwt-ovk-fish oil 1,000 mg (120 mg-180 mg) capsule (Fish Oil) 1 cap PO TID 06/12/25 [History Confirmed 06/12/25] propranolol 20 mg tablet 20 mg PO BID 06/12/25 [History Confirmed 06/12/25] tamsulosin 0.4 mg capsule 0.4 mg PO QPM 06/12/25 [History Confirmed 06/12/25] Discharge Plan Discharge Patient Disposition: Home Condition: Stable Prescriptions: Continued glipizide 10 mg tablet 20 mg PO BID lovastatin 10 mg tablet 10 mg PO DAILY aspirin 81 mg tablet 81 mg PO DAILY insulin glargine 100 unit/mL cartridge 40 unit SUBCUT QAM latanoprost 0.005 % drops 1 drp ophthalmic (eye) DAILY atorvastatin 80 mg Tablet 40 mg PO QPM tamsulosin 0.4 mg Capsule 0.4 mg PO QPM lidocaine 5 % Adhesive Patch,Medicated 3 patch TOPICAL DAILY Rx Instructions: leave on most painful area for up to 12 hrs gabapentin 100 mg Capsule 200 mg PO TID fluticasone propion-salmeterol 100-50 mcg/dose Blister With Device 1 inh INHALATION BID albuterol sulfate 90 mcg/actuation Hfa Aerosol Inhaler 2 puff INHALATION QID PRN (Reason: Shortness Of Breath) propranolol 20 mg Tablet 20 mg PO BID metformin 500 mg Tablet Extended Release 24 Hr 1,000 mg PO BID apple cider vinegar 300 mg Tablet 300 mg PO DAILY multivitamin with min no.7-FA 1 mg Capsule 1 cap PO DAILY diclofenac sodium 1 % Gel 4 g TOPICAL QID Rx Instructions: apply to single knee, ankle, foot; for foot includes sole/toes/top of foot cholecalciferol (vitamin D3) 50 mcg (2,000 unit) Tablet 50 mcg PO DAILY omega 5-rbw-uif-fish oil [Fish Oil] 1,000 (120-180) mg Capsule 1 cap PO TID Jardiance 25 mg Tablet 25 mg PO DAILY dorzolamide-timolol 22.3-6.8 mg/mL drops 1 drp ophthalmic (eye) BID Discontinued clopidogrel [Plavix] 75 mg tablet 75 mg PO DAILY Contract Design Agent OK for DC: Cardiology Discharge Order = DC NOW: Discharge Order (Routine); Ordered 06/13/25 Ordered By: Jared Patel Referrals: Moni Emery MD [Primary Care Provider, Family Practice] Patient Instructions: Opioid Safety, Pain Management, Patient Portal & [place] Instructions Transfer Attestations Time Spent in Transfer Care: greater than 30 min Quality Metrics Clinical Quality Measures [ Acute Myocardial Infaction { Clinical Trial Participant: No; Contraindication to aspirin: None; Aspirin prescribed; Contraindication to statin: None; Statin prescribed;}] Coding Level of Care Code Acute Code for g Fwd Diagnoses ST elevation myocardial infarction (STEMI) I21.3 Hypertension I10 Prostate cancer C61 Lung calcification J98.4 Hyperlipidemia E78.5 LV dysfunction I51.9 Carotid artery disease I77.9
--- NOTE | 2025-06-13 18:11 | P.PN_ITS ---
Subjective 2 Subjective: Patient's troponin peaked at 185. He denies chest pain and states he is feels pretty good right now. Blood sugars have been high. He is going up to [facility] for CABG arranged by Dr. Patel. Vitals/I&O/Wt Last Vital Signs Temp 98.6 F 06/12/25 22:00 Pulse 65 06/13/25 15:33 Resp 16 06/13/25 15:32 BP 97/52 06/13/25 03:00 Pulse Ox 96 06/13/25 15:32 O2 Del Method Room Air 06/13/25 15:32 O2 Flow Rate 2 06/13/25 08:59 06/13/25 06/13/25 06/13/25 06:59 14:59 22:59 Intake Total 299.467 / 399.467 727.333 / 727.333 559.142 / 1286.475 Output Total 1000 / 1515 600 / 600 600 / 1200 Balance -700.533 / -1115.533 127.333 / 127.333 -40.858 / 86.475 Weight last 48 hrs Weight 73.482 kg Weight 77.111 kg Weight 80.739 kg Physical Exam 2 Narrative: General well-developed well-nourished male in no acute cardiopulmonary stress he is l alert and talkative today CV regular rate and rhythm Lungs clear to auscultation bilaterally with good air movement Abdomen positive bowel tones soft nontender Calves no tenderness cords pretibial edema Radial pulses 2/4 Dorsal pedal pulses 2+/4 Neck no JVD Data 06/13/25 04:08 06/13/25 04:08 A&P Assessment and plan 1. ST elevation myocardial infarction (STEMI): Patient has multivessel coronary artery disease by selective coronary angiogram done yesterday, he has not had intervention. Dr. Patel has arranged with cardiothoracic surgery transfer for CABG and potentially also a right carotid endarterectomy Patient's health is generally pretty good but he has uncontrolled diabetes, history of hypertension and hyperlipidemia. Troponin 168 at 1552 PTT was 88.2 at 1552 resume heparin no bolus 2. Diabetes mellitus with diabetic neuropathy: Increase Lantus to 50 units daily. Hold metformin due to recent dye. 2000- calorie ADA diet 3. Lung calcification: Creatinine still 1. consider CT scan with contrast to follow-up lung nodules 4. Hyperlipidemia: Continue with atorvastatin 80 mg nightly 5. Hypertension: I am going to start metoprolol 25 mg twice a day in place of the he has amlodipine due to known coronary artery disease. Blood pressure 97/57 heart rate 65 O2 sat 96% on room air PDMP PDMP Reviewed: Not Reviewed Attestations 2 Medical Necessity Statement*: Patient remains in the ICU on heparin protocol awaiting transfer Coding Level of Care Code Acute Code for [facility] Diagnoses ST elevation myocardial infarction (STEMI) I21.3 Diabetes mellitus with diabetic neuropathy E11.40 Lung calcification J98.4 Hyperlipidemia E78.5 Hypertension I10 Time Spent (min) 25
--- NOTE | 2025-06-13 18:21 | PC.NURSE ---
Progress note Transfer: Patient in care of [facility] at the time of this note. All patient belongings with patient including clothing, shoes, and cellphone. Hillary Navarro called and given update on arrival. Patient called both sons and daughter to inform them of transfer.
== END 2025-06-13 18:26 | disposition short-term general hospital (02) | DRG 282 ==
LOC: ER 15:34 → CCL 15:35 → ICU 16:35
PROVIDERS: Internal Medicine; Admitting Provider Internal Medicine Cardiovascular Disease; Emergency Provider Family Medicine; PCP Family Medicine; Visit Provider Internal Medicine Cardiovascular Disease
PROC: 4A023N7 Measurement of Cardiac Sampling and Pressure, Left Heart, Percutaneous Approach (ICD-10-PCS; principal; 2025-06-12 15:30)
DX: I21.3 ST elevation (STEMI) myocardial infarction of unspecified site (principal); E11.40 Type 2 diabetes mellitus with diabetic neuropathy, unspecified; E11.51 Type 2 diabetes mellitus with diabetic peripheral angiopathy without gangrene; E11.65 Type 2 diabetes mellitus with hyperglycemia; J98.4 Other disorders of lung; E78.5 Hyperlipidemia, unspecified; I10 Essential (primary) hypertension; I77.9 Disorder of arteries and arterioles, unspecified; Z79.82 Long term (current) use of aspirin; Z79.02 Long term (current) use of antithrombotics/antiplatelets; Z79.84 Long term (current) use of oral hypoglycemic drugs; Z79.4 Long term (current) use of insulin; Z88.2 Allergy status to sulfonamides; Z91.041 Radiographic dye allergy status; Z85.828 Personal history of other malignant neoplasm of skin; Z87.891 Personal history of nicotine dependence; Z86.73 Personal history of transient ischemic attack (TIA), and cerebral infarction without residual deficits; Z85.46 Personal history of malignant neoplasm of prostate; Z90.79 Acquired absence of other genital organ(s)
CPT/HCPCS: 36415; 36416; 71045; 75625; 80048; 80053; 82550; 82962; 83690; 83880; 84484; 85025; 85347; 85378; 85610; 85730; 86850; 86900; 93005; 93306; 93458; 94640; 96372; 96374; 96375; 99152; 99153; 99285; C1760; C1769; C1887; C1894; G0269; J1200; J1644; J1815; J1938; J2250; J2405; J2919; J3010; J3490; J7030; J7613; J7626; J9999; Q9967